=== PATIENT | male | born 1985 | race Caucasian/White ===

== ENCOUNTER 2018-11-11 12:44 | Outpatient (REF) | payer BC, SELFPAY ==
[2018-11-11 14:11] LABS: C-Reactive Protein 0.17 mg/dL (0.0-0.3)
[2018-11-11 14:58] LABS: ESR 6 MM/HR (0-15)
[2018-11-14 14:17] LABS: ANA Interpretation Negative (NEGAT)
== END 2018-11-11 13:04 ==
LOC: NCHCN 12:44
PROVIDERS: PCP Nurse Practitioner Family; Visit Provider Nurse Practitioner Family
DX: F41.8 Other specified anxiety disorders (principal); M25.551 Pain in right hip; L71.9 Rosacea, unspecified; M54.9 Dorsalgia, unspecified; E66.9 Obesity, unspecified; G47.00 Insomnia, unspecified; Z00.00 Encounter for general adult medical examination without abnormal findings
CPT/HCPCS: 85652; 84443; 86038; 86140

== ENCOUNTER 2021-07-07 15:12 | Outpatient (REF) | payer BC, SELFPAY ==
[2021-07-09 09:34] LABS: Hepatitis C Ab w Rflx HCV PCR Negative (Negative)
[2021-07-09 10:07] LABS: HIV-1/2 Ag & Ab Screen Negative (Negative)
== END 2021-07-07 15:13 | disposition home or self-care (01) ==
LOC: NCHCN 15:12
PROVIDERS: PCP Nurse Practitioner Family; Visit Provider Nurse Practitioner Family
DX: Z11.4 Encounter for screening for human immunodeficiency virus [HIV] (principal); Z11.3 Encounter for screening for infections with a predominantly sexual mode of transmission; Z11.59 Encounter for screening for other viral diseases
CPT/HCPCS: 86803; 87389; 87491; 87591